=== PATIENT | female | born 1970 | race American Indian/Alaskan Native ===

== ENCOUNTER 2018-09-12 14:53 | Emergency (ER) | payer BC, OTHER ==
--- NOTE | 2018-09-12 15:00 | Event Note ---
ED Screening Note ED Screening Note: pt presents with left middle finger pain that began yesterday states she was dusting and jammed it against the head board has pain and edema pt is right hand dominant never injured before no pmhx no allergies to meds This initial assessment/diagnostic orders/clinical plan/treatment(s) is/are subject to change based on patients health status, clinical progression and re- assessment by fellow clinical providers in the ED. Further treatment and workup at subsequent clinical providers discretion. Patient/guardian urged not to elope from the ED as their condition may be serious if not clinically assessed and managed. Initial orders include: XR of the left hand
[2018-09-12 15:01] VITALS: BP 129/83
--- NOTE | 2018-09-12 15:26 | XRay Report ---
Left hand 2 views Indication: left middle finger pain Findings: There is no fracture, subluxation, or other acute radiographic abnormality of the left hand. Signer Name: Andrea Luz MD Signed: 09/12/2018 3:22 PM Workstation Name: [id number]
--- NOTE | 2018-09-12 17:44 | Emergency Department Report ---
Upper Extremity - HPI Chief Complaint: Extremity Injury, Upper Stated Complaint: FINGER INJURY Time Seen by Provider: 09/12/18 14:58 Upper Extremity: Left Hand Occurred When: 1 Day Mechanism: Hit with Object Severity: moderate Symptoms: Yes Pain with Movement, Yes Limited Range of Movement, Yes Bruising/Ecchymosis, No Deformity, No Numbness, No Weakness, No Swelling, No Laceration or Abrasion Other History: This is a 48-year-old female who presents to ED complaining of left third digit pain times yesterday. Patient states that she accidentally hit her hand on the headboard of her car. Patient states she sound when it happened. Patient admits some swelling to the third finger. She admits pain with movement of that finger she denies any deformity ED Review of Systems ROS: Stated complaint: FINGER INJURY Other details as noted in HPI Comment: All other systems reviewed and negative ED Past Medical Hx - Past Medical History Previous Medical History?: Yes Hx Arthritis: Yes - Surgical History Past Surgical History?: Yes Additional Surgical History: left ankle surgery - Social History Smoking Status: Never Smoker Substance Use Type: None - Medications Home Medications: Home Medications Medication Instructions Recorded Confirmed Last Taken Type Ibuprofen [Motrin 800 MG tab] 800 mg PO TID #30 tablet 09/12/18 Unknown Rx Upper Extremity Exam - Exam General: Vital signs noted. No distress. Alert and acting appropriately. ED Course Vital Signs 09/12/18 14:59 Temperature 97.7 F Pulse Rate 88 Respiratory 14 Rate Blood Pressure 129/83 O2 Sat by Pulse 100 Oximetry ED Medical Decision Making - Radiology Data Radiology results: report reviewed, image reviewed Ordering Physician: ZURI OTTO Date of Service: 09/12/18 Procedure(s): XR hand 3+V LT Accession Number(s): [id number] cc: ZURI OTTO Fluoro Time In Minutes: Left hand 2 views Indication: left middle finger pain Findings: There is no fracture, subluxation, or other acute radiographic abnormality of the left hand. Signer Name: Andrea Luz MD Signed: 09/12/2018 3:22 PM Workstation Name: [id number] Transcribed By: Dictated By: Andrea Luz MD Electronically Authenticated By: Andrea Luz MD Signed Date/Time: 09/12/18 1522 - Medical Decision Making 48-year-old female presents with pain of the third digit. X-ray shows no acute fractures or dislocation. Discussed the patient to the ice finger 3 times a day. Discussed Motrin as needed for pain. Vital signs are normal patient is in no acute distress. Critical care attestation.: If time is entered above; I have spent that time in minutes in the direct care of this critically ill patient, excluding procedure time. ED Disposition Clinical Impression: Finger pain, left Disposition: DC- TO HOME OR SELFCARE Is pt being admited?: No Does the pt Need Aspirin: No Condition: Stable Instructions: Finger Sprain (ED), Arthralgia (ED) Additional Instructions: Make sure to follow up with the primary care physician as discussed. Take all your medications as you've been prescribed. If you have any worsening symptoms or develop new symptoms please return to ED immediately. Prescriptions: Ibuprofen [Motrin 800 MG tab] 800 mg PO TID #30 tablet Referrals: MEGHNA PALACIOS MD [Primary Care Provider] - 3-5 Days [facility] [Outside] - 3-[address] [facility] [Outside] - 3-5 Days Forms: Accompanied Note, Work/School Release Form(ED) Time of Disposition: 17:52
[2018-09-12] MEDS ORDERED: IBUPROFEN PO ONE (17:45)
== END 2018-09-12 18:13 | disposition home or self-care (01) ==
LOC: ED 14:53
DX: M79.645 Pain in left finger(s) (principal); M19.90 Unspecified osteoarthritis, unspecified site; Z98.890 Other specified postprocedural states; Z79.899 Other long term (current) drug therapy; W22.8XXA Striking against or struck by other objects, initial encounter; Y93.89 Activity, other specified; Y92.89 Other specified places as the place of occurrence of the external cause; Y99.8 Other external cause status
CPT/HCPCS: 99283